=== PATIENT | male | born 1965 | race Native Hawaiian/Other Pacific Islander ===

== ENCOUNTER 2018-07-29 19:08 | Emergency (ER) | payer MEDICARE ==
--- NOTE | 2018-07-29 19:48 | EDM.PDOC ---
ED HPI GENERAL MEDICAL PROBLEM - General Chief Complaint: Flank Pain Stated Complaint: LEFT FLANK PAIN Time Seen by Provider: 07/29/18 19:08 Source of Information: Reports: Patient History Limitations: Reports: No Limitations, Language Barrier - History of Present Illness INITIAL COMMENTS - FREE TEXT/NARRATIVE: 53 y.o. male with HTN, CRI, H/O Kidney stones, came to the ED because of chronic left flank pain. 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 Pt moved 3 days ago from [place] to [place], [place] because he had family trouble back home and his daughter lives in [place], [place]. He was on a pain contract in [place], was seen at a pain clinic in [place], take Percocet daily, he did not bring his med records from [place] to [place]. 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 Pt denied trauma. He is allergic to multiple meds, requesting more pain meds, stronger then Percocet and nausea meds. No V/D no SOB, no CO or any other acute med issues. Pt took his morning HTN meds, not his PM HTN meds. 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) (percocet) Left Flank Pain Score (Numeric/FACES): 8 - Related Data Allergies Allergy/AdvReac Type Severity Reaction Status Date / Time Cephalosporins Allergy Cannot Verified 07/29/18 19:25 Remember ciprofloxacin [From Cipro] Allergy Cannot Verified 07/29/18 19:25 Remember Iodinated Contrast- Oral and Allergy Cannot Verified 07/29/18 19:25 IV Dye Remember morphine Allergy Cannot Verified 07/29/18 19:25 Remember Sulfa (Sulfonamide Allergy Cannot Verified 07/29/18 19:25 Antibiotics) Remember vancomycin Allergy Cannot Verified 07/29/18 19:25 Remember Home Meds: Home Meds Aspirin [Halfprin] 07/29/18 [History] Clopidogrel [Plavix] 07/29/18 [History] Fenofibrate Nanocrystallized [Fenofibrate] 07/29/18 [History] Metoprolol Tartrate [Lopressor] 07/29/18 [History] levoFLOXacin [Levaquin] 250 mg PO DAILY #10 tab 07/29/18 [Rx] oxyCODONE HCl/Acetaminophen [Percocet 5-325 mg Tablet] 07/29/18 [History] Social & Family History - Tobacco Use Smoking Status *Q: Never Smoker - Caffeine Use Caffeine Use: Reports: Coffee - Recreational Drug Use Recreational Drug Use: No ED ROS GENERAL - Review of Systems Review Of Systems: See Below Constitutional: Reports: No Symptoms HEENT: Reports: No Symptoms Respiratory: Reports: No Symptoms Cardiovascular: Reports: No Symptoms Endocrine: Reports: No Symptoms GI/Abdominal: Reports: No Symptoms : Reports: Flank Pain (left side) Musculoskeletal: Reports: No Symptoms Skin: Reports: No Symptoms Neurological: Reports: No Symptoms Psychiatric: Reports: No Symptoms Hematologic/Lymphatic: Reports: No Symptoms Immunologic: Reports: No Symptoms ED EXAM, RENAL/ - Physical Exam Exam: See Below Exam Limited By: Language Barrier General Appearance: Alert, WD/WN, Moderate Distress Eye Exam: Bilateral Eye: Normal Inspection Ears: Normal External Exam Nose: Normal Inspection, Normal Mucosa, No Blood Throat/Mouth: Normal Inspection, Normal Lips, Normal Voice, No Airway Compromise , Other (poor dentition) Head: Atraumatic, Normocephalic Neck: Normal Inspection Respiratory/Chest: No Respiratory Distress, Lungs Clear, Normal Breath Sounds Cardiovascular: Normal Peripheral Pulses, Regular Rate, Rhythm, No Edema, No Gallop GI/Abdominal: Normal Bowel Sounds, Soft, No Abnormal Bruit, No Mass, Pelvis Stable (Male) Exam: No Hernia Rectal (Males) Exam: Deferred Back Exam: Normal Inspection Extremities: Normal Inspection Neurological: Alert, Oriented, CN II-XII Intact, Normal Cognition, Normal Gait Psychiatric: Normal Affect Skin Exam: Warm, Dry, Intact, Normal Color, No Rash Lymphatic: No Adenopathy Course - Vital Signs Text/Narrative:: 53 y.o. male with HTN, CRI, H/O Kidney stones, came to the ED because of chronic left flank pain. 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 Pt moved 3 days ago from [place] to [place], [place] because he had family trouble back home and his daughter lives in [place], [place]. He was on a pain contract in [place], was seen at a pain clinic in [place], take Percocet daily, he did not bring his med records from [place] to [place]. 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 Pt denied trauma. He is allergic to multiple meds, requesting more pain meds, stronger then Percocet and nausea meds. No V/D no SOB, no CO or any other acute med issues. Pt took his morning HTN meds, not his PM HTN meds. BP 187/93 RR 18 Pulse ox 97% on RA Pulse 79 Temp 36.6 PE: WNWD male with left flank pain, CRI, kidney stone disease, HTN Imaging: Multiple nonobstructive calcifications left kidney, minimal, nonspecific prominence at the left renal collecting system. F/U recommended. No finding explaining the left flank pain was found. Labs: CBC nl except HGB 11.1 BMP pos for BUN 27 Cr 2.5 GFR 27 Glc 136 UA: Pos for UTI without hematuria. UCx results are pending Impression: Left flank pain, Nonobstructive left Kidney calcifications, UTI without Hematuria Tx: Zofran, Dilaudid, Levaquin (had Levaquin in the past, no SE) Reexam: Improved, please check the nursing note fopr BP on D/C. Pt said he wants to file a formal complain(?) (Could not specify) Plan: D/C with instruction. Pt stated his Daughter will pick him up form the ED because he got Dilaudid Last Recorded V/S: Last Vital Signs Temp 36.8 C 07/29/18 19:08 Pulse 88 07/29/18 21:30 Resp 18 07/29/18 21:30 BP 179/82 H 07/29/18 21:30 Pulse Ox 99 07/29/18 21:30 - Orders/Labs/Meds Orders: Active Orders 24 hr Category Date Time Status Abdomen Pelvis wo Cont [CT] Stat Exams 07/29/18 19:47 Taken CULTURE URINE [RM] Stat Lab 07/29/18 19:33 Received Saline Lock Insert [OM.PC] Routine Oth 07/29/18 20:06 Ordered Labs: Laboratory Tests 06/07/1207/29/18 07/29/18 Range/Units 19:33 19:53 19:53 WBC 9.4 (4.5-12.0) X10-3/uL RBC 3.81 L (4.30-5.75) x10(6)uL Hgb 11.1 L (13.5-17.8) g/dL Hct 32.1 (30.0-51.3) % MCV 84.3 (80-96) fL MCH 29.2 (27.7-33.6) pg MCHC 34.6 (32.2-35.4) g/dL RDW 13.7 (11.5-15.5) % Plt Count 292 (125-369) X10(3)uL MPV 7.4 (7.4-10.4) fL Neut % (Auto) 53.2 (46-82) % Lymph % (Auto) 31.1 (13-37) % [place] % (Auto) 8.5 (4-12) % Eos % (Auto) 6 H (1.0-5.0) % Baso % (Auto) 1 (0-2) % Neut # (Auto) 5.0 (1.6-8.3) # Lymph # (Auto) 2.9 (0.6-5.0) # [place] # (Auto) 0.8 (0.0-1.3) # Eos # (Auto) 0.6 (0.0-0.8) # Baso # (Auto) 0.1 (0.0-0.2) # Sodium 136 (135-145) mmol/L Potassium 4.7 (3.5-5.3) mmol/L Chloride 104 (100-110) mmol/L Carbon Dioxide 22 (21-32) mmol/L BUN 27 H (7-18) mg/dL Creatinine 2.5 H* (0.70-1.30) mg/dL Est Cr Clr Drug Dosing TNP Estimated GFR (MDRD) 27 L (>60) BUN/Creatinine Ratio 10.8 (9-20) Glucose 136 H (80-116) mg/dL Calcium 9.1 (8.6-10.2) mg/dL Urine Color Yellow (YELLOW) Urine Appearance Clear (CLEAR) Urine pH 6.0 (5.0-6.5) Ur Specific [place] 1.010 (1.010-1.025) Urine Protein 100 H (NEGATIVE) mg/dL Urine Glucose (UA) Normal (NORMAL) mg/dL Urine Ketones Negative (NEGATIVE) mg/dL Urine Occult Blood Negative (NEGATIVE) Urine Nitrite Negative (NEGATIVE) Urine Bilirubin Negative (NEGATIVE) Urine Urobilinogen Normal (NEGATIVE) mg/dL Ur Leukocyte Esterase Large H (NEGATIVE) Urine RBC 0-5 (0-5) Urine WBC 5-10 H (0-5) Ur Squamous Epith Cells Rare (NS,R,O) Urine Bacteria Many H (NS) Meds: Medications Discontinued Medications Generic Name Dose Route Start Last Admin Trade Name Freq PRN Reason Stop Dose Admin Hydromorphone HCl 0.5 mg 07/29/18 20:54 07/29/18 21:02 Dilaudid IM 07/29/18 20:55 0.5 mg ONETIME ONE Administration Sodium Chloride 1,000 mls @ 125 mls/hr 07/29/18 20:00 07/29/18 20:05 Normal Saline IV 999 mls/hr ASDIRECTED CHASTITY Administration Levofloxacin 250 mg 07/29/18 20:27 07/29/18 20:36 Levaquin PO 07/29/18 20:28 250 mg ONETIME ONE Administration Ondansetron HCl 8 mg 07/29/18 20:27 07/29/18 20:36 Zofran Odt PO 07/29/18 20:28 8 mg ONETIME ONE Administration Oxycodone/Acetaminophen 1 tab 07/29/18 20:51 07/29/18 22:08 Percocet 325-5 Mg PO 07/29/18 20:52 Not Given ONETIME ONE Sodium Chloride 10 ml 07/29/18 20:06 07/29/18 20:06 Saline Flush FLUSH 10 ml ASDIRECTED PRN Administration Keep Vein Open Departure - Departure Time of Disposition: 21:00 Disposition: Home, Self-Care 01 Condition: Good Clinical Impression: Kidney calculi, UTI (urinary tract infection) - Discharge Information Prescriptions: levoFLOXacin [Levaquin] 250 mg PO DAILY #10 tab Instructions: Kidney Stones, [id number], Urinary Tract Infection, Adult, Levofloxacin tablets Referrals: PCP,None [Primary Care Provider] - Forms: ED Department Discharge Additional Instructions: Please take Abx as recommended, please f/u with a Kidney specialist a.s.a.p cont your pain meds. Please come back if your symptoms get worse acutely. - My Orders Last 24 Hours: My Active Orders 07/29/18 19:33 CULTURE URINE [RM] Stat 07/29/18 19:47 Abdomen Pelvis wo Cont [CT] Stat 07/29/18 20:06 Saline Lock Insert [OM.PC] Routine - Assessment/Plan Last 24 Hours: My Active Orders 07/29/18 19:33 CULTURE URINE [RM] Stat 07/29/18 19:47 Abdomen Pelvis wo Cont [CT] Stat 07/29/18 20:06 Saline Lock Insert [OM.PC] Routine
[2018-07-29] MEDS: Sodium Chloride 0.9% 1,000 ML IV SCH (20:05)
[2018-07-29] MEDS: Sodium Chloride 0.9% 10 ML Syringe FLUSH PRN (20:06)
[2018-07-29] MEDS: Levofloxacin 250 MG Tab PO ONE (20:36)
[2018-07-29] MEDS: Ondansetron 8 MG Tab.DIS PO ONE (20:36)
[2018-07-29] MEDS: HYDROmorphone 2 MG/ML SDV IM ONE (21:02)
[2018-07-29] MEDS: Acetaminophen/oxyCODONE 325-5 MG Tab PO ONE (22:08)
== END 2018-07-29 21:30 | disposition home or self-care (01) ==
LOC: FB.ED 19:08
DX: N39.0 Urinary tract infection, site not specified (principal); N20.0 Calculus of kidney; Z88.1 Allergy status to other antibiotic agents; Z79.899 Other long term (current) drug therapy; Z79.82 Long term (current) use of aspirin
CPT/HCPCS: 36415; 74176; 80048; 81001; 85025; 87086; 87088; 96360; 96372; 99284; A9270; J1170; J7030; 87186

== ENCOUNTER 2018-08-11 22:45 | Emergency (ER) | payer MEDICARE ==
[2018-08-11] MEDS ORDERED: traMADol 50 MG Tab PO ONE (22:46)
--- NOTE | 2018-08-11 23:16 | EDM.PDOC ---
ED HPI GENERAL MEDICAL PROBLEM - General Chief Complaint: Flank Pain Stated Complaint: KIDNEY PAIN Time Seen by Provider: 08/11/18 23:00 Source of Information: Reports: Patient, Old Records History Limitations: Reports: No Limitations - History of Present Illness INITIAL COMMENTS - FREE TEXT/NARRATIVE: Thania returns to [facility] ED with ongoing sxs of L CVA and flank pain that is chronic, ED notes reviewed from 07/29/18. His supply of Percocet is depleted for chronic pain managment reportedly last pill taken 3 days ago. His UC noted S.epidermis, and he was given a prescription for Levaquin 250 mg qd x 10 days. He has not seen a PCP since relocating from [facility]. He reportedly has an appt. see a urologist from [place] next week. L flank Pain Score (Numeric/FACES): 7 - Related Data Allergies Allergy/AdvReac Type Severity Reaction Status Date / Time Cephalosporins Allergy Cannot Verified 07/29/18 19:25 Remember ciprofloxacin [From Cipro] Allergy Cannot Verified 07/29/18 19:25 Remember Iodinated Contrast- Oral and Allergy Cannot Verified 07/29/18 19:25 IV Dye Remember morphine Allergy Cannot Verified 07/29/18 19:25 Remember Sulfa (Sulfonamide Allergy Cannot Verified 07/29/18 19:25 Antibiotics) Remember vancomycin Allergy Cannot Verified 07/29/18 19:25 Remember Home Meds: Home Meds Aspirin [Halfprin] 81 mg DAILY 07/29/18 [History] Clopidogrel [Plavix] 75 mg DAILY 07/29/18 [History] Fenofibrate Nanocrystallized [Fenofibrate] 160 mg DAILY 07/29/18 [History] Metoprolol Tartrate [Lopressor] 50 mg DAILY 07/29/18 [History] oxyCODONE HCl/Acetaminophen [Percocet 5-325 mg Tablet] 1 tab Q4H PRN 07/29/18 [ History] Past Medical History Cardiovascular History: Reports: Stents Genitourinary History: Reports: Renal Calculus - Past Surgical History Male Surgical History: Reports: Other (See Below) Other Male Surgeries/Procedures: right kidney removed in 2007 Social & Family History - Family History Family Medical History: Noncontributory - Caffeine Use Caffeine Use: Reports: Coffee ED ROS GENERAL - Review of Systems Review Of Systems: ROS reveals no pertinent complaints other than HPI. ED EXAM, RENAL/ - Physical Exam Exam: See Below Exam Limited By: No Limitations General Appearance: Alert, WD/WN, No Apparent Distress Eye Exam: Bilateral Eye: EOMI, Normal Inspection, PERRL Ears: Normal External Exam Nose: Normal Inspection Throat/Mouth: Normal Inspection, Normal Oropharynx Head: Normocephalic Neck: Normal Inspection, Non-Tender Respiratory/Chest: Lungs Clear Cardiovascular: Regular Rate, Rhythm, No Murmur GI/Abdominal: Normal Bowel Sounds, Soft, No Organomegaly, No Distention, No Mass , Tender (overlying L CVA and flank, without guarding or rigidity) (Male) Exam: Deferred Rectal (Males) Exam: Deferred Back Exam: CVA Tenderness (L) Extremities: Normal Inspection Neurological: Alert, Oriented, CN II-XII Intact, Normal Cognition, No Motor/ Sensory Deficits Psychiatric: Normal Affect, Normal Mood Skin Exam: Warm, Dry, Intact, Normal Color, No Rash Lymphatic: No Adenopathy Course - Vital Signs Text/Narrative:: Following assessment, screening labs were performed noting CBC, BMP, and UA baseline; CRP 0.8, ESR 34 mm/hr, Urine DS pos oxycodone. Thania could not explain the positive drug screen on the basis of med free for 72 hours. He did sign a ELIJAH for clinic records from facility in [facility]. Last Recorded V/S: Last Vital Signs Temp 36.7 C 08/11/18 22:45 Pulse 89 08/11/18 22:45 Resp 18 08/11/18 22:45 BP 183/93 H 08/11/18 22:45 Pulse Ox 100 08/11/18 22:45 - Orders/Labs/Meds Labs: Laboratory Tests 08/11/18 08/11/18 08/11/18 Range/Units 23:07 23:07 23:30 WBC 10.3 (4.5-12.0) X10-3/uL RBC 4.28 L (4.30-5.75) x10(6)uL Hgb 12.6 L (13.5-17.8) g/dL Hct 36.6 (30.0-51.3) % MCV 85.5 (80-96) fL MCH 29.5 (27.7-33.6) pg MCHC 34.5 (32.2-35.4) g/dL RDW 13.8 (11.5-15.5) % Plt Count 298 (125-369) X10(3)uL MPV 7.7 (7.4-10.4) fL Neut % (Auto) 55.3 (46-82) % Lymph % (Auto) 31.7 (13-37) % [place] % (Auto) 7.7 (4-12) % Eos % (Auto) 5 (1.0-5.0) % Baso % (Auto) 1 (0-2) % Neut # (Auto) 5.6 (1.6-8.3) # Lymph # (Auto) 3.3 (0.6-5.0) # [place] # (Auto) 0.8 (0.0-1.3) # Eos # (Auto) 0.5 (0.0-0.8) # Baso # (Auto) 0.1 (0.0-0.2) # ESR 38 H (0-15) mm/hr Sodium (135-145) mmol/L Potassium (3.5-5.3) mmol/L Chloride (100-110) mmol/L Carbon Dioxide (21-32) mmol/L BUN (7-18) mg/dL Creatinine (0.70-1.30) mg/dL Est Cr Clr Drug Dosing mL/min Estimated GFR (MDRD) (>60) BUN/Creatinine Ratio (9-20) Glucose (80-116) mg/dL Calcium (8.6-10.2) mg/dL C-Reactive Protein (0.5-0.9) mg/dL Urine Color Yellow (YELLOW) Urine Appearance Clear (CLEAR) Urine pH 6.0 (5.0-6.5) Ur Specific [place] 1.020 (1.010-1.025) Urine Protein 30 H (NEGATIVE) mg/dL Urine Glucose (UA) 100 H (NORMAL) mg/dL Urine Ketones Negative (NEGATIVE) mg/dL Urine Occult Blood Negative (NEGATIVE) Urine Nitrite Negative (NEGATIVE) Urine Bilirubin Negative (NEGATIVE) Urine Urobilinogen Normal (NEGATIVE) mg/dL Ur Leukocyte Esterase Negative (NEGATIVE) Urine RBC 0-5 (0-5) Urine WBC 0-5 (0-5) Ur Squamous Epith Cells Rare (NS,R,O) Urine Bacteria Few H (NS) Urine Opiates Screen Negative (NEGATIVE) Ur Oxycodone Screen Positive (NEGATIVE) Ur Propoxyphene Screen Negative (NEGATIVE) Ur Barbituates Screen Negative (NEGATIVE) Ur Tricyclics Screen Negative (NEGATIVE) Ur Phencyclidine Scrn Negative (NEGATIVE) Ur Amphetamine Screen Negative (NEGATIVE) Urine MDMA Screen Negative (NEGATIVE) U Benzodiazepines Scrn Negative (NEGATIVE) U Cocaine Metab Screen Negative (NEGATIVE) U Marijuana (THC) Screen Negative (NEGATIVE) 08/11/18 08/11/18 Range/Units 23:30 23:30 WBC (4.5-12.0) X10-3/uL RBC (4.30-5.75) x10(6)uL Hgb (13.5-17.8) g/dL Hct (30.0-51.3) % MCV (80-96) fL MCH (27.7-33.6) pg MCHC (32.2-35.4) g/dL RDW (11.5-15.5) % Plt Count (125-369) X10(3)uL MPV (7.4-10.4) fL Neut % (Auto) (46-82) % Lymph % (Auto) (13-37) % [place] % (Auto) (4-12) % Eos % (Auto) (1.0-5.0) % Baso % (Auto) (0-2) % Neut # (Auto) (1.6-8.3) # Lymph # (Auto) (0.6-5.0) # [place] # (Auto) (0.0-1.3) # Eos # (Auto) (0.0-0.8) # Baso # (Auto) (0.0-0.2) # ESR (0-15) mm/hr Sodium 141 (135-145) mmol/L Potassium 5.6 H (3.5-5.3) mmol/L Chloride 109 D (100-110) mmol/L Carbon Dioxide 22 (21-32) mmol/L BUN 21 H (7-18) mg/dL Creatinine 2.6 H* (0.70-1.30) mg/dL Est Cr Clr Drug Dosing 29.99 mL/min Estimated GFR (MDRD) 26 L (>60) BUN/Creatinine Ratio 8.1 L (9-20) Glucose 180 H (80-116) mg/dL Calcium 8.8 (8.6-10.2) mg/dL C-Reactive Protein 0.8 (0.5-0.9) mg/dL Urine Color (YELLOW) Urine Appearance (CLEAR) Urine pH (5.0-6.5) Ur Specific [place] (1.010-1.025) Urine Protein (NEGATIVE) mg/dL Urine Glucose (UA) (NORMAL) mg/dL Urine Ketones (NEGATIVE) mg/dL Urine Occult Blood (NEGATIVE) Urine Nitrite (NEGATIVE) Urine Bilirubin (NEGATIVE) Urine Urobilinogen (NEGATIVE) mg/dL Ur Leukocyte Esterase (NEGATIVE) Urine RBC (0-5) Urine WBC (0-5) Ur Squamous Epith Cells (NS,R,O) Urine Bacteria (NS) Urine Opiates Screen (NEGATIVE) Ur Oxycodone Screen (NEGATIVE) Ur Propoxyphene Screen (NEGATIVE) Ur Barbituates Screen (NEGATIVE) Ur Tricyclics Screen (NEGATIVE) Ur Phencyclidine Scrn (NEGATIVE) Ur Amphetamine Screen (NEGATIVE) Urine MDMA Screen (NEGATIVE) U Benzodiazepines Scrn (NEGATIVE) U Cocaine Metab Screen (NEGATIVE) U Marijuana (THC) Screen (NEGATIVE) Departure - Departure Time of Disposition: 00:22 Disposition: Home, Self-Care 01 Condition: Fair Clinical Impression: Chronic left flank pain - Discharge Information *PRESCRIPTION DRUG MONITORING PROGRAM REVIEWED*: Not Applicable *COPY OF PRESCRIPTION DRUG MONITORING REPORT IN PATIENT SCOTT: Not Applicable Referrals: PCP,None [Primary Care Provider] - Forms: ED Department Discharge - Problem List & Annotations (1) Chronic left flank pain SNOMED Code(s): 876166179 Code(s): R10.9 - UNSPECIFIED ABDOMINAL PAIN; G89.29 - OTHER CHRONIC PAIN Status: Acute Current Visit: Yes Annotation/Comment:: I dispensed Tramadol 50 mg q6 hrs prn for pain, and follow up with PCP. - Problem List Review Problem List Initiated/Reviewed/Updated: Yes - Assessment/Plan Plan: Follow up with PCP.
== END 2018-08-12 00:27 | disposition home or self-care (01) ==
LOC: FB.ED 22:45
DX: R10.9 Unspecified abdominal pain (principal); Z88.2 Allergy status to sulfonamides; Z88.6 Allergy status to analgesic agent; Z88.8 Allergy status to other drugs, medicaments and biological substances; Z79.02 Long term (current) use of antithrombotics/antiplatelets; Z79.899 Other long term (current) drug therapy; Z88.1 Allergy status to other antibiotic agents
CPT/HCPCS: 36415; 80048; 80305-QW; 81001; 85025; 85651; 86140; 99284; A9270-GY

== ENCOUNTER 2018-08-16 03:47 | Emergency (ER) | payer MEDICARE, MEDICAID ==
[2018-08-16] MEDS ORDERED: Nitrofurantoin Monohydrate/Macrocrystalline 100 MG Cap PO ONE (03:48)
[2018-08-16] MEDS ORDERED: fentaNYL 100 MCG/2 ML SDV IVPUSH ONE (04:36)
[2018-08-16] MEDS ORDERED: Ondansetron 4 MG/2 ML SDV IVPUSH ONE (04:36)
--- NOTE | 2018-08-16 04:41 | EDM.PDOC ---
ED HPI GENERAL MEDICAL PROBLEM - General Chief Complaint: General Stated Complaint: WEAK FOR 4 DAYS Time Seen by Provider: 08/16/18 04:36 Source of Information: Reports: Patient History Limitations: Reports: No Limitations - History of Present Illness INITIAL COMMENTS - FREE TEXT/NARRATIVE: Thania complains of left flank pain,x several days. It is attended by diarrhea, frequency and urgency of urination. He has a h/o CKD,GLORIA and one kidney. He has a h/o Kidney stones,and frequent UTIs,for which he has an upcoming appt with Urology on 08/18.He recently moved from [facility],where he was on a pain contract for the same .He denies fever or chills. - Related Data Allergies Allergy/AdvReac Type Severity Reaction Status Date / Time Cephalosporins Allergy Cannot Verified 08/16/18 04:22 Remember ciprofloxacin [From Cipro] Allergy Cannot Verified 08/16/18 04:22 Remember Iodinated Contrast- Oral and Allergy Cannot Verified 08/16/18 04:22 IV Dye Remember morphine Allergy Cannot Verified 08/16/18 04:22 Remember Sulfa (Sulfonamide Allergy Cannot Verified 08/16/18 04:22 Antibiotics) Remember vancomycin Allergy Cannot Verified 08/16/18 04:22 Remember Home Meds: Home Meds Aspirin [Halfprin] 81 mg DAILY 07/29/18 [History] Clopidogrel [Plavix] 75 mg DAILY 07/29/18 [History] Fenofibrate Nanocrystallized [Fenofibrate] 160 mg DAILY 07/29/18 [History] Metoprolol Tartrate [Lopressor] 50 mg DAILY 07/29/18 [History] oxyCODONE HCl/Acetaminophen [Percocet 5-325 mg Tablet] 1 tab Q4H PRN 07/29/18 [ History] Past Medical History Cardiovascular History: Reports: Stents Other Cardiovascular History: has 6 stents Genitourinary History: Reports: Renal Calculus Other Genitourinary History: has nonfunctioning R kidney Psychiatric History: Reports: Anxiety, Depression, Panic Attack Endocrine/Metabolic History: Reports: Diabetes, Type II Other Endocrine/Metabolic History: states DM resolved after weightloss, is currently not on meds. Hematologic History: Reports: Blood Transfusion(s) - Infectious Disease History Infectious Disease History: Reports: Chicken Pox, Measles, Mumps, Shingles - Past Surgical History Male Surgical History: Reports: Other (See Below) Other Male Surgeries/Procedures: right kidney removed in 2007 Social & Family History - Family History Family Medical History: Noncontributory - Tobacco Use Smoking Status *Q: Current Every Day Smoker Years of Tobacco use: 40 Packs/Tins Daily: 1 - Caffeine Use Caffeine Use: Reports: Coffee ED ROS GENERAL - Review of Systems Review Of Systems: ROS reveals no pertinent complaints other than HPI. ED EXAM, GENERAL - Physical Exam Exam: See Below Exam Limited By: No Limitations General Appearance: Alert, Anxious Ears: Normal External Exam, Normal Canal, Hearing Grossly Normal, Normal TMs Respiratory/Chest: No Respiratory Distress Cardiovascular: Normal Peripheral Pulses Course - Vital Signs Last Recorded V/S: Last Vital Signs Temp 98.2 F 08/16/18 03:50 Pulse 84 08/16/18 03:50 Resp 16 08/16/18 03:50 BP 151/88 H 08/16/18 03:50 Pulse Ox 98 08/16/18 03:50 - Orders/Labs/Meds Orders: Active Orders 24 hr Category Date Time Status Abdomen Pelvis wo Cont [CT] Stat Exams 08/16/18 04:29 Taken CULTURE URINE [RM] Stat Lab 08/16/18 04:00 Received Sodium Chloride 0.9% [Normal Saline] 1,000 ml Med 08/16/18 04:45 Active IV ASDIRECTED Sodium Chloride 0.9% [Normal Saline] 1,000 ml Med 08/16/18 06:00 Active IV ASDIRECTED Medication Orders Sodium Chloride (Normal Saline) 1,000 mls @ 999 mls/hr IV ASDIRECTED CHASTITY Last Admin: 08/16/18 05:05 Dose: 999 mls/hr Sodium Chloride (Normal Saline) 1,000 mls @ 125 mls/hr IV ASDIRECTED CHASTITY Last Admin: 08/16/18 06:10 Dose: 125 mls/hr Labs: Laboratory Tests 08/16/18 08/16/18 08/16/18 Range/Units 04:00 04:48 04:48 WBC 10.2 (4.5-12.0) X10-3/uL RBC 4.15 L (4.30-5.75) x10(6)uL Hgb 11.9 L (13.5-17.8) g/dL Hct 35.4 (30.0-51.3) % MCV 85.3 (80-96) fL MCH 28.6 (27.7-33.6) pg MCHC 33.5 (32.2-35.4) g/dL RDW 13.9 (11.5-15.5) % Plt Count 269 (125-369) X10(3)uL MPV 7.7 (7.4-10.4) fL Neut % (Auto) 53.1 (46-82) % Lymph % (Auto) 32.8 (13-37) % [place] % (Auto) 8.4 (4-12) % Eos % (Auto) 5 (1.0-5.0) % Baso % (Auto) 1 (0-2) % Neut # (Auto) 5.4 (1.6-8.3) # Lymph # (Auto) 3.3 (0.6-5.0) # [place] # (Auto) 0.9 (0.0-1.3) # Eos # (Auto) 0.5 (0.0-0.8) # Baso # (Auto) 0.1 (0.0-0.2) # Sodium 141 (135-145) mmol/L Potassium 5.7 H (3.5-5.3) mmol/L Chloride 108 (100-110) mmol/L Carbon Dioxide 22 (21-32) mmol/L BUN 41 H D (7-18) mg/dL Creatinine 3.1 H* (0.70-1.30) mg/dL Est Cr Clr Drug Dosing 25.15 mL/min Estimated GFR (MDRD) 21 L (>60) BUN/Creatinine Ratio 13.2 (9-20) Glucose 158 H (80-116) mg/dL Calcium 9.3 (8.6-10.2) mg/dL Urine Color Yellow (YELLOW) Urine Appearance Slightly cloudy (CLEAR) Urine pH 6.0 (5.0-6.5) Ur Specific [place] 1.015 (1.010-1.025) Urine Protein 30 H (NEGATIVE) mg/dL Urine Glucose (UA) Normal (NORMAL) mg/dL Urine Ketones Negative (NEGATIVE) mg/dL Urine Occult Blood Negative (NEGATIVE) Urine Nitrite Negative (NEGATIVE) Urine Bilirubin Negative (NEGATIVE) Urine Urobilinogen Normal (NEGATIVE) mg/dL Ur Leukocyte Esterase Large H (NEGATIVE) Urine RBC 0-5 (0-5) Urine WBC 10-20 H (0-5) Ur Squamous Epith Cells Rare (NS,R,O) Urine Bacteria Moderate H (NS) Meds: Medications Generic Name Dose Route Start Last Admin Trade Name Freq PRN Reason Stop Dose Admin Sodium Chloride 1,000 mls @ 999 mls/hr 08/16/18 04:45 08/16/18 05:05 Normal Saline IV 999 mls/hr ASDIRECTED CHASTITY Administration Sodium Chloride 1,000 mls @ 125 mls/hr 08/16/18 06:00 08/16/18 06:10 Normal Saline IV 125 mls/hr ASDIRECTED CHASTITY Administration Discontinued Medications Generic Name Dose Route Start Last Admin Trade Name Freq PRN Reason Stop Dose Admin Fentanyl 100 mcg 08/16/18 04:36 08/16/18 05:12 Sublimaze IVPUSH 08/16/18 04:37 100 mcg ONETIME ONE Administration Ondansetron HCl 8 mg 08/16/18 04:36 08/16/18 05:05 Zofran IVPUSH 08/16/18 04:37 8 mg ONETIME ONE Administration Departure - Departure Time of Disposition: 06:48 Disposition: Home, Self-Care 01 Condition: Good Clinical Impression: UTI, Urinary tract infectious disease - Discharge Information Referrals: PCP,None [Primary Care Provider] - Forms: ED Department Discharge - Problem List & Annotations (1) Kidney calculi SNOMED Code(s): 73798304 Code(s): N20.0 - CALCULUS OF KIDNEY Status: Acute Current Visit: No (2) UTI (urinary tract infection) SNOMED Code(s): 30970794 Code(s): N39.0 - URINARY TRACT INFECTION, SITE NOT SPECIFIED Status: Acute Current Visit: No Qualifiers: Urinary tract infection type: acute cystitis (3) Chronic left flank pain SNOMED Code(s): 042409872 Code(s): R10.9 - UNSPECIFIED ABDOMINAL PAIN; G89.29 - OTHER CHRONIC PAIN Status: Acute Current Visit: No (4) CKD (chronic kidney disease) SNOMED Code(s): 633143299 Code(s): N18.9 - CHRONIC KIDNEY DISEASE, UNSPECIFIED Status: Acute Current Visit: Yes Qualifiers: Chronic kidney disease stage: stage 3 (moderate) Qualified Code(s): N18.3 - Chronic kidney disease, stage 3 (moderate) (5) GLORIA (generalized anxiety disorder) SNOMED Code(s): 81582013 Code(s): F41.1 - GENERALIZED ANXIETY DISORDER Status: Acute Current Visit : Yes - Problem List Review Problem List Initiated/Reviewed/Updated: Yes - My Orders Last 24 Hours: My Active Orders 08/16/18 04:00 CULTURE URINE [RM] Stat 08/16/18 04:29 Abdomen Pelvis wo Cont [CT] Stat 08/16/18 04:45 Sodium Chloride 0.9% [Normal Saline] 1,000 ml IV ASDIRECTED 08/16/18 06:00 Sodium Chloride 0.9% [Normal Saline] 1,000 ml IV ASDIRECTED - Assessment/Plan Last 24 Hours: My Active Orders 08/16/18 04:00 CULTURE URINE [RM] Stat 08/16/18 04:29 Abdomen Pelvis wo Cont [CT] Stat 08/16/18 04:45 Sodium Chloride 0.9% [Normal Saline] 1,000 ml IV ASDIRECTED 08/16/18 06:00 Sodium Chloride 0.9% [Normal Saline] 1,000 ml IV ASDIRECTED Plan: 1 L Normal saline,Fentanyl and Zofran.CT kidney stone protocol showed mild hydronephrosis. No stone within the bladder or ureter. I will DC home on Macrobid. Urine culture on 07/29/2018 showed s epidermidis to it.
[2018-08-16] MEDS ORDERED: Sodium Chloride 0.9% 1,000 ML IV SCH ×2 (04:45→06:00)
== END 2018-08-16 07:20 | disposition home or self-care (01) ==
LOC: FB.ED 03:47
DX: N39.0 Urinary tract infection, site not specified (principal); F41.9 Anxiety disorder, unspecified; F32.9 Major depressive disorder, single episode, unspecified; E11.9 Type 2 diabetes mellitus without complications; F17.210 Nicotine dependence, cigarettes, uncomplicated; Z88.8 Allergy status to other drugs, medicaments and biological substances; Z88.1 Allergy status to other antibiotic agents; Z88.2 Allergy status to sulfonamides; Z79.82 Long term (current) use of aspirin
CPT/HCPCS: 36415; 74176; 80048; 81001; 85025; 87086; 87088; 87186; 96361; 96374; 96375; 99284; A9270; J2405; J3010; J7030

== ENCOUNTER 2018-08-17 01:11 | Emergency (ER) | payer MEDICARE, MEDICAID ==
[2018-08-17] MEDS ORDERED: Sodium Chloride 0.9% 10 ML Syringe FLUSH PRN (01:42)
[2018-08-17] MEDS ORDERED: Acetaminophen 1,000 MG in Premix Bag 1 BAG IV ONE (01:43)
[2018-08-17] MEDS ORDERED: Sodium Chloride 0.9% 1,000 ML IV ONE (01:43)
--- NOTE | 2018-08-17 01:58 | EDM.PDOC ---
ED HPI GENERAL MEDICAL PROBLEM - General Stated Complaint: DIARRHEA,LT BACK PAIN Time Seen by Provider: 08/17/18 01:35 Source of Information: Reports: Patient History Limitations: Reports: No Limitations - History of Present Illness INITIAL COMMENTS - FREE TEXT/NARRATIVE: 53-year-old male with long-standing history of left flank pain, kidney stones and chronic renal insufficiency. He was just in the emergency department on 08/[address] Stack. He had blood tests, urine tests and a CT scan of his abdomen and pelvis. The blood tests did show creatinine 3.1 (and a review of the patient's records does show that his creatinine has increased mildly over the 3 visits that he has had in the emergency department over the first part of July.. The urine test suggested ongoing infection with some white cells and some bacteria. The CT scan of his abdomen and pelvis showed no evidence of kidney stones. He did have mild hydronephrosis on the left side. The patient was not given any pain medications. He had seen Dr. Stack in clinic wanting to establish for chronic pain management with a pain contract for opiates and Dr. Stack refused to prescribe the patient chronic pain medications. The patient was not prescribed pain medication when discharged on the morning of 08/16/2018. The patient was also placed on Macrobid by Dr. Stack and had previously been on levofloxacin for a tract infection. He tells me that the pain seems to have worsened. He reports the pain as an 8/10. It is in his left flank. It is a sharp and aching pain. It is no different from his previous pains, just seems to be worse. He also reports that he has had diarrhea 6-8 today and that seems to be worse than when he presented on 2018. He has not really eaten very well. He has been taking liquids well. No fevers. No vomiting. No chest pain. No shortness of breath. There are no other associated signs or symptoms. There are no other modifying factors. 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: Reports: Other (see below) (Nothing) - Related Data Allergies Allergy/AdvReac Type Severity Reaction Status Date / Time Cephalosporins Allergy Cannot Verified 08/17/18 02:24 Remember ciprofloxacin [From Cipro] Allergy Cannot Verified 08/17/18 02:24 Remember Iodinated Contrast- Oral and Allergy Cannot Verified 08/17/18 02:24 IV Dye Remember morphine Allergy Cannot Verified 08/17/18 02:24 Remember Sulfa (Sulfonamide Allergy Cannot Verified 08/17/18 02:24 Antibiotics) Remember vancomycin Allergy Cannot Verified 08/17/18 02:24 Remember Home Meds: Home Meds Aspirin [Halfprin] 81 mg DAILY 07/29/18 [History] Clopidogrel [Plavix] 75 mg DAILY 07/29/18 [History] Fenofibrate Nanocrystallized [Fenofibrate] 160 mg DAILY 07/29/18 [History] Metoprolol Tartrate [Lopressor] 50 mg DAILY 07/29/18 [History] oxyCODONE HCl/Acetaminophen [Percocet 5-325 mg Tablet] 1 tab Q4H PRN 07/29/18 [ History] Past Medical History Cardiovascular History: Reports: CAD, High Cholesterol, Hypertension, HI (4), Stents (Time 6) Genitourinary History: Reports: Chronic Renal Insuffiency, Renal Calculus Other Genitourinary History: Status post right nephrectomy Psychiatric History: Reports: Anxiety, Depression, Panic Attack Endocrine/Metabolic History: Reports: Diabetes, Type II (But reportedly on no medications for this) Other Endocrine/Metabolic History: states DM resolved after weightloss, is currently not on meds. Hematologic History: Reports: Blood Transfusion(s) - Infectious Disease History Infectious Disease History: Reports: Chicken Pox, Measles, Mumps, Shingles - Past Surgical History Cardiovascular Surgical History: Reports: Carotid Stents (6) Female Surgical History: Reports: Kidney stone extraction, Lithotripsy/ESWL, Nephrectomy Male Surgical History: Reports: Other (See Below) Other Male Surgeries/Procedures: right kidney removed in 2007 Social & Family History - Tobacco Use Smoking Status *Q: Current Every Day Smoker - Caffeine Use Caffeine Use: Reports: Coffee - Alcohol Use Alcohol Use History: No - Living Situation & Occupation Social History Comment: Drove himself to the [facility]. ED ROS GENERAL - Review of Systems Review Of Systems: See Below Constitutional: Reports: No Symptoms HEENT: Reports: No Symptoms Respiratory: Reports: Cough Cardiovascular: Reports: No Symptoms GI/Abdominal: Reports: Diarrhea, Other (Left flank pain) : Reports: Flank Pain (Left). Denies: Dysuria, Hematuria Musculoskeletal: Reports: No Symptoms Skin: Reports: No Symptoms Neurological: Reports: No Symptoms Hematologic/Lymphatic: Reports: No Symptoms Immunologic: Reports: No Symptoms ED EXAM, RENAL/ - Physical Exam Exam: See Below Exam Limited By: No Limitations General Appearance: Alert, WD/WN, No Apparent Distress Eye Exam: Bilateral Eye: EOMI, Normal Inspection, PERRL Ears: Normal External Exam Nose: Normal Inspection, Normal Mucosa, No Blood Throat/Mouth: Normal Inspection, Normal Oropharynx (Except for mildly dry mucous membranes), Normal Voice, No Airway Compromise Head: Atraumatic, Normocephalic Neck: Normal Inspection, Supple, Non-Tender, Full Range of Motion Respiratory/Chest: No Respiratory Distress, Lungs Clear, Normal Breath Sounds, No Accessory Muscle Use, Chest Non-Tender Cardiovascular: Normal Peripheral Pulses, Regular Rate, Rhythm GI/Abdominal: Normal Bowel Sounds, Soft, No Mass Back Exam: Normal Inspection Extremities: Normal Inspection, Normal Range of Motion, Non-Tender, No Pedal Edema, Normal Capillary Refill Neurological: Alert, Oriented, CN II-XII Intact, Normal Cognition, No Motor/ Sensory Deficits Skin Exam: Warm, Dry, Intact Lymphatic: No Adenopathy EKG INTERPRETATION EKG Date: 08/17/18 Time: 02:30 Rhythm: NSR Rate (Beats/Min): 81 [place]: Normal P-Wave: Present QRS: Normal ST-T: Other (Somewhat peaked/prominent T waves) QT: Normal EKG Interpretation Comments: Normal sinus rhythm with a rate of 81. There are prominent/peaked T waves. There is some evidence of early repolarization. There is a normal axis. There is a normal QTc. Course - Orders/Labs/Meds Orders: Active Orders 24 hr Category Date Time Status EKG Documentation Completion [RC] ASDIRECTED Care 08/17/18 02:28 Active RT Aerosol Therapy [RC] ASDIRECTED Care 08/17/18 02:39 Active Sodium Chloride 0.9% [Saline Flush] Med 08/17/18 01:42 Active 10 ml FLUSH ASDIRECTED PRN Peripheral IV Insertion Adult [OM.PC] Routine Oth 08/17/18 01:42 Ordered EKG 12 Lead [EK] Routine Ther 08/17/18 02:28 Ordered Medication Orders Sodium Chloride (Saline Flush) 10 ml FLUSH ASDIRECTED PRN PRN Reason: Keep Vein Open Labs: Laboratory Tests 08/17/18 08/17/18 Range/Units 02:00 02:00 WBC 9.6 (4.5-12.0) X10-3/uL RBC 3.90 L (4.30-5.75) x10(6)uL Hgb 11.1 L (13.5-17.8) g/dL Hct 33.1 (30.0-51.3) % MCV 85.0 (80-96) fL MCH 28.5 (27.7-33.6) pg MCHC 33.6 (32.2-35.4) g/dL RDW 14.1 (11.5-15.5) % Plt Count 238 (125-369) X10(3)uL MPV 7.3 L (7.4-10.4) fL Neut % (Auto) 52.3 (46-82) % Lymph % (Auto) 33.2 (13-37) % [place] % (Auto) 9.5 (4-12) % Eos % (Auto) 5 (1.0-5.0) % Baso % (Auto) 1 (0-2) % Neut # (Auto) 5.1 (1.6-8.3) # Lymph # (Auto) 3.2 (0.6-5.0) # [place] # (Auto) 0.9 (0.0-1.3) # Eos # (Auto) 0.4 (0.0-0.8) # Baso # (Auto) 0.0 (0.0-0.2) # Sodium 140 (135-145) mmol/L Potassium 6.5 H* (3.5-5.3) mmol/L Chloride 111 H (100-110) mmol/L Carbon Dioxide 20 L (21-32) mmol/L BUN 39 H (7-18) mg/dL Creatinine 3.0 H* (0.70-1.30) mg/dL Est Cr Clr Drug Dosing TNP Estimated GFR (MDRD) 22 L (>60) BUN/Creatinine Ratio 13.0 (9-20) Glucose 106 (80-116) mg/dL Calcium 8.9 (8.6-10.2) mg/dL Meds: Medications Generic Name Dose Route Start Last Admin Trade Name Freq PRN Reason Stop Dose Admin Sodium Chloride 10 ml 08/17/18 01:42 Saline Flush FLUSH ASDIRECTED PRN Keep Vein Open Discontinued Medications Generic Name Dose Route Start Last Admin Trade Name Freq PRN Reason Stop Dose Admin Albuterol 5 mg 08/17/18 02:36 08/17/18 03:00 Proventil Neb Soln NEB 08/17/18 02:37 5 mg ONETIME ONE Administration Calcium Gluconate 1 gm 08/17/18 02:39 Calcium Gluconate IV 08/17/18 02:40 ONETIME ONE Dextrose/Water 50 ml 08/17/18 02:36 Dextrose 50% In Water IVPUSH 08/17/18 02:37 ONETIME ONE Fentanyl 100 mcg 08/17/18 02:52 Sublimaze IVPUSH 08/17/18 02:53 ONETIME ONE Acetaminophen 1,000 mg/ Premix 100 mls @ 400 mls/hr 08/17/18 01:43 08/17/18 02:25 IV 08/17/18 01:57 Not Given NOW ONE Sodium Chloride 1,000 mls @ 999 mls/hr 08/17/18 01:43 08/17/18 01:55 Normal Saline IV 08/17/18 02:43 999 mls/hr .BOLUS ONE Administration Acetaminophen 100 mls @ 400 mls/hr 08/17/18 02:30 Ofirmev IV 08/17/18 02:44 ONETIME ONE Insulin Human Regular 8 unit 08/17/18 02:47 Humulin R IV 08/17/18 02:48 ONETIME ONE Sodium Bicarbonate 50 meq 08/17/18 02:36 Sodium Bicarbonate 8.4% IVPUSH 08/17/18 02:37 ONETIME ONE - Re-Assessments/Exams Free Text/Narrative Re-Assessment/Exam: 08/17/18 02:35: Patient's creatinine is 3.0. His Potassium, however, is 6.5. EKG shows prominent/peaked T waves. We will move the patient to a monitored bed and placed patient on cardiac surgeon with treatment for hyperkalemia. He will be given calcium gluconate 1 g IV, sodium bicarbonate 1 amp IV, albuterol neb 5 mg and D50 one amp IV with regular insulin 8 units IV. 08/17/18 02:55: Patient remains vitally stable. He is awake and alert. Immediate therapy for hyperkalemia is being implemented. With the patient's hyperkalemia, worsening renal function with one kidney, hydronephrosis on CT scan of 08/16/2018 and ongoing left flank pain, the patient will need to be admitted for treatment of these conditions and further evaluation. He will need specialty services which are not available at [facility] and will need transfer to a facility which has urology specialty services and nephrology specially services. The patient was scheduled to see urology through [facility] in [place] and the patient asked that I discuss his case with them. 08/17/18 03:12: I discussed patient's case with Dr. Emanuel, hospitalist at [facility] in [place], and he has agreed to accept the patient in transfer. He agrees with the current treatment regimen for the patient's hyperkalemia and recommends continued IV fluid hydration with normal saline and continued careful monitoring. The patient will be transferred to [facility] in [place] via ambulance for direct admission. The patient is in agreement with the plans for transfer. Departure - Departure Time of Disposition: 03:20 Disposition: DC/Tfer to Acute Hospital 02 Condition: Fair (Guarded) Clinical Impression: Hyperkalemia, Acute electrocardiogram changes, Left flank pain, Hydronephrosis , left [id number] kidney injury Qualifiers: Acute renal failure type: unspecified Chronic kidney disease stage: unspecified stage Qualified Code(s): N17.9 - Acute kidney failure, unspecified; N18.9 - Chronic kidney disease, unspecified - Discharge Information Referrals: PCP,None [Primary Care Provider] - - My Orders Last 24 Hours: My Active Orders 08/17/18 01:42 Sodium Chloride 0.9% [Saline Flush] 10 ml FLUSH ASDIRECTED PRN Peripheral IV Insertion Adult [OM.PC] Routine 08/17/18 02:28 EKG Documentation Completion [RC] ASDIRECTED EKG 12 Lead [EK] Routine 08/17/18 02:39 RT Aerosol Therapy [RC] ASDIRECTED - Assessment/Plan Last 24 Hours: My Active Orders 08/17/18 01:42 Sodium Chloride 0.9% [Saline Flush] 10 ml FLUSH ASDIRECTED PRN Peripheral IV Insertion Adult [OM.PC] Routine 08/17/18 02:28 EKG Documentation Completion [RC] ASDIRECTED EKG 12 Lead [EK] Routine 08/17/18 02:39 RT Aerosol Therapy [RC] ASDIRECTED
[2018-08-17] MEDS ORDERED: 50% Dextrose in Water 50 ML Syringe IVPUSH ONE (02:36)
[2018-08-17] MEDS ORDERED: Albuterol 0.083% 2.5 MG/3 ML Neb Soln NEB ONE (02:36)
[2018-08-17] MEDS ORDERED: Sodium Bicarbonate 8.4% 50 MEQ/50 ML Syringe IVPUSH ONE (02:36)
[2018-08-17] MEDS ORDERED: Calcium Gluconate 10% 1 GM/10 ML SDV IV ONE (02:39)
[2018-08-17] MEDS ORDERED: Insulin Lispro 100 Unit/ML 3 ML KwikPen SUBCUT ONE (02:40)
[2018-08-17] MEDS ORDERED: Insulin Regular, Human 100 Units/ML 3 ML Vial IV ONE (02:47)
[2018-08-17] MEDS ORDERED: fentaNYL 100 MCG/2 ML SDV IVPUSH ONE (02:52)
[2018-08-17] MEDS ORDERED: Sodium Chloride 0.9% 1,000 ML IV SCH (03:30)
== END 2018-08-17 04:00 ==
LOC: FB.ED 01:11
DX: N17.9 Acute kidney failure, unspecified (principal); I12.9 Hypertensive chronic kidney disease with stage 1 through stage 4 chronic kidney disease, or unspecified chronic kidney disease; E11.22 Type 2 diabetes mellitus with diabetic chronic kidney disease; N18.9 Chronic kidney disease, unspecified; N13.2 Hydronephrosis with renal and ureteral calculous obstruction; R94.31 Abnormal electrocardiogram [ECG] [EKG]; E87.5 Hyperkalemia; F41.9 Anxiety disorder, unspecified; F32.9 Major depressive disorder, single episode, unspecified; F17.200 Nicotine dependence, unspecified, uncomplicated; Z79.82 Long term (current) use of aspirin; Z79.899 Other long term (current) drug therapy; Z88.1 Allergy status to other antibiotic agents; Z91.041 Radiographic dye allergy status; Z88.2 Allergy status to sulfonamides
CPT/HCPCS: 36415; 80048; 85025; 93005; 94640; 96361; 96365; 96375; 99285; A4216; J0131; J0610; J1815; J3010; J7030

== ENCOUNTER 2018-08-24 23:16 | Emergency (ER) | payer MEDICARE, MEDICAID ==
--- NOTE | 2018-08-25 01:00 | EDM.PDOC ---
ED HPI GENERAL MEDICAL PROBLEM - General Chief Complaint: Flank Pain Stated Complaint: LT FLANK PAIN Time Seen by Provider: 08/25/18 00:40 Source of Information: Reports: Patient History Limitations: Reports: No Limitations - History of Present Illness INITIAL COMMENTS - FREE TEXT/NARRATIVE: 53-year-old male with complaints of left flank pain and reporting that he is out of his Percocet. He has chronic left flank pain with history of solitary left kidney and history of multiple ureteral stones with chronic renal insufficiency. The patient has been seen multiple times in this emergency Department related to his left flank pain. I saw him on 08/17/2018 and at that time he had hyperkalemia, urinary tract infection and acute kidney injury with acute on chronic renal failure and he was sent to [facility] in [place]. He apparently was treated for his hyperkalemia and was also placed on antibiotics for his urinary tract infection and urology was consult to see the patient. The patient, however, refused any further treatment or evaluation and was discharged at his request on 08/17/2018. He was prescribed additional antibiotics but he has never gotten those antibiotics filled. He was seen in follow-up by the urologist Dr. Gilbert who felt that had no evidence of obstruction and did not need any urologic intervention. The patient reports that he was given a prescription for 24 Percocet 5/325 on his discharge on 2018 and he is currently out of those medications and he is reporting an 8/10 level of pain in his left back and flank area. The pain is a sharp and throbbing pain. This pain is no different than the pain that he always has but it just seems to be worse because he does not have any medications to take for pain. He was referred to the pain clinic through [facility] in [place] and is supposed to have an appointment with them on 09/03/2018. He apparently had discussed trying to get Dr. Gilbert to cover him with urtication's but Dr. Gilbert refused. The patient denies any fever. He has been eating and drinking normally. He has had no weakness or dizziness. He reports that he feels well other than he has left back and flank pain that is not controlled. There are no other associated signs or symptoms. There are no other modifying factors. It should be noted that I reviewed the patient's records from [facility] from his admission on 08/17/2018 and from his follow-up appointment with Dr. Gilbert on 08/20/2018. Onset: Other (Months or years) Duration: Chronic, Constant Location: Reports: Back (Left back and left flank) Quality: Reports: Ache, Throbbing Severity: Moderate (to severe) Improves with: Reports: None Worsens with: Reports: Other (Palpation) Context: Reports: Other (Ongoing. 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 (see below) (Ran out of his Percocet; nothing) - Related Data Allergies Allergy/AdvReac Type Severity Reaction Status Date / Time Cephalosporins Allergy Cannot Verified 08/17/18 02:24 Remember ciprofloxacin [From Cipro] Allergy Cannot Verified 08/17/18 02:24 Remember Iodinated Contrast- Oral and Allergy Cannot Verified 08/17/18 02:24 IV Dye Remember morphine Allergy Cannot Verified 08/17/18 02:24 Remember Sulfa (Sulfonamide Allergy Cannot Verified 08/17/18 02:24 Antibiotics) Remember vancomycin Allergy Cannot Verified 08/17/18 02:24 Remember Home Meds: Home Meds Aspirin [Halfprin] 81 mg DAILY 07/29/18 [History] Clopidogrel [Plavix] 75 mg DAILY 07/29/18 [History] Fenofibrate Nanocrystallized [Fenofibrate] 160 mg DAILY 07/29/18 [History] Metoprolol Tartrate [Lopressor] 50 mg DAILY 07/29/18 [History] oxyCODONE HCl/Acetaminophen [Percocet 5-325 mg Tablet] 1 tab Q4H PRN 07/29/18 [ History] Rifampin [Rifadin] 300 mg PO TID #30 capsule 08/19/18 [Rx] Doxycycline [Vibramycin] 100 mg PO BID 10 Days #20 cap 08/25/18 [Rx] Past Medical History Cardiovascular History: Reports: CAD, High Cholesterol, Hypertension, TN (4), Stents (Time 6) Other Cardiovascular History: has 6 stents Genitourinary History: Reports: Chronic Renal Insuffiency, Renal Calculus, Other (See Below) (Chronic right flank pain) Other Genitourinary History: Status post right nephrectomy Psychiatric History: Reports: Anxiety, Depression, Panic Attack Endocrine/Metabolic History: Reports: Diabetes, Type II (But reportedly on no medications for this) Other Endocrine/Metabolic History: states DM resolved after weightloss, is currently not on meds. Hematologic History: Reports: Blood Transfusion(s) - Infectious Disease History Infectious Disease History: Reports: Chicken Pox, Measles, Mumps, Shingles - Past Surgical History Cardiovascular Surgical History: Reports: Carotid Stents (6) Female Surgical History: Reports: Kidney stone extraction, Lithotripsy/ESWL, Nephrectomy Male Surgical History: Reports: Other (See Below) Other Male Surgeries/Procedures: right kidney removed in 2007 Social & Family History - Tobacco Use Smoking Status *Q: Current Every Day Smoker - Caffeine Use Caffeine Use: Reports: Coffee - Alcohol Use Alcohol Use History: Yes Alcohol Use Frequency: Rarely - Living Situation & Occupation Social History Comment: Recently moved here from [place]. ED ROS GENERAL - Review of Systems Review Of Systems: See Below Constitutional: Denies: Fever, Chills HEENT: Reports: No Symptoms Respiratory: Reports: No Symptoms Cardiovascular: Reports: Chest Pain (Right-sided chest pain off-and-on) GI/Abdominal: Reports: No Symptoms : Reports: Flank Pain (Left flank pain which is chronic.) Musculoskeletal: Reports: Back Pain Skin: Reports: No Symptoms Neurological: Reports: No Symptoms Hematologic/Lymphatic: Reports: No Symptoms Immunologic: Reports: No Symptoms ED EXAM, GENERAL - Physical Exam Exam: See Below Exam Limited By: No Limitations General Appearance: Alert, WD/WN, Mild Distress, Other (Nontoxic.) Eye Exam: Bilateral Eye: EOMI, Normal Inspection, PERRL Ears: Normal External Exam Ear Exam: Bilateral Ear: Auricle Normal Nose: Normal Inspection, Normal Mucosa, No Blood Throat/Mouth: Normal Inspection, Normal Oropharynx, Normal Voice, No Airway Compromise Head: Atraumatic, Normocephalic Neck: Normal Inspection, Supple, Non-Tender, Full Range of Motion Respiratory/Chest: No Respiratory Distress, Lungs Clear, Normal Breath Sounds, No Accessory Muscle Use, Chest Non-Tender Cardiovascular: Normal Peripheral Pulses, Regular Rate, Rhythm, No JVD, No Murmur Peripheral Pulses: 2+: Radial (L), Radial (R), Dorsalis Pedis (L), Dorsalis Pedis (R) GI/Abdominal: Normal Bowel Sounds, Soft, Non-Tender, No Distention, No Mass Back Exam: Normal Inspection, CVA Tenderness (L) Extremities: Normal Inspection, Normal Range of Motion, Non-Tender, No Pedal Edema, Normal Capillary Refill Neurological: Alert, Oriented, CN II-XII Intact, Normal Cognition, No Motor/ Sensory Deficits Skin Exam: Warm, Dry, Intact, Normal Color, No Rash Lymphatic: No Adenopathy EKG INTERPRETATION EKG Date: 08/25/18 Time: 01:45 Rhythm: NSR Rate (Beats/Min): 74 [place]: Normal P-Wave: Present QRS: Normal ST-T: Normal QT: Normal Comparison: No Change (Patient no longer has peaked T waves. Otherwise no real significant change from previous EKG. There is poor R-wave progression that could represent a previous old anteroseptal TN.) Course - Orders/Labs/Meds Orders: Active Orders 24 hr Category Date Time Status EKG Documentation Completion [RC] ASDIRECTED Care 08/25/18 01:45 Active CULTURE URINE [RM] Stat Lab 08/25/18 00:39 Received Acetaminophen/oxyCODONE [Percocet 325-5 MG] Med 08/25/18 02:39 Once 2 tab PO ONETIME ONE Doxycycline [Vibra-Tabs] Med 08/25/18 02:40 Once 100 mg PO ONETIME ONE EKG 12 Lead [EK] Routine Ther 08/25/18 01:44 Ordered Medication Orders Doxycycline Hyclate (Vibra-Tabs) 100 mg PO ONETIME ONE Stop: 08/25/18 02:41 Oxycodone/Acetaminophen (Percocet 325-5 Mg) 2 tab PO ONETIME ONE Stop: 08/25/18 02:40 Labs: Laboratory Tests 08/25/18 08/25/18 08/25/18 Range/Units 00:39 01:20 01:20 WBC 9.2 (4.5-12.0) X10-3/uL RBC 3.91 L (4.30-5.75) x10(6)uL Hgb 11.3 L (13.5-17.8) g/dL Hct 33.1 (30.0-51.3) % MCV 84.7 (80-96) fL MCH 28.9 (27.7-33.6) pg MCHC 34.1 (32.2-35.4) g/dL RDW 14.1 (11.5-15.5) % Plt Count 273 (125-369) X10(3)uL MPV 7.1 L (7.4-10.4) fL Neut % (Auto) 51.0 (46-82) % Lymph % (Auto) 34.9 (13-37) % [place] % (Auto) 8.1 (4-12) % Eos % (Auto) 5 (1.0-5.0) % Baso % (Auto) 1 (0-2) % Neut # (Auto) 4.7 (1.6-8.3) # Lymph # (Auto) 3.2 (0.6-5.0) # [place] # (Auto) 0.7 (0.0-1.3) # Eos # (Auto) 0.5 (0.0-0.8) # Baso # (Auto) 0.1 (0.0-0.2) # Sodium 142 (135-145) mmol/L Potassium 5.3 D (3.5-5.3) mmol/L Chloride 109 (100-110) mmol/L Carbon Dioxide 22 (21-32) mmol/L BUN 43 H (7-18) mg/dL Creatinine 3.0 H* (0.70-1.30) mg/dL Est Cr Clr Drug Dosing TNP Estimated GFR (MDRD) 22 L (>60) BUN/Creatinine Ratio 14.3 (9-20) Glucose 119 H (80-116) mg/dL Calcium 9.3 (8.6-10.2) mg/dL Magnesium (1.8-2.5) mg/dL Troponin I (<0.017-0.056) ng/mL Urine Color Yellow (YELLOW) Urine Appearance Clear (CLEAR) Urine pH 6.0 (5.0-6.5) Ur Specific [place] 1.020 (1.010-1.025) Urine Protein 30 H (NEGATIVE) mg/dL Urine Glucose (UA) Normal (NORMAL) mg/dL Urine Ketones Negative (NEGATIVE) mg/dL Urine Occult Blood Negative (NEGATIVE) Urine Nitrite Positive H (NEGATIVE) Urine Bilirubin Negative (NEGATIVE) Urine Urobilinogen Normal (NEGATIVE) mg/dL Ur Leukocyte Esterase Small H (NEGATIVE) Urine RBC 0-5 (0-5) Urine WBC 10-20 H (0-5) Ur Squamous Epith Cells Rare (NS,R,O) Urine Bacteria Few H (NS) Coarse Granular Casts Few H (NS) 08/25/18 08/25/18 Range/Units 01:20 01:20 WBC (4.5-12.0) X10-3/uL RBC (4.30-5.75) x10(6)uL Hgb (13.5-17.8) g/dL Hct (30.0-51.3) % MCV (80-96) fL MCH (27.7-33.6) pg MCHC (32.2-35.4) g/dL RDW (11.5-15.5) % Plt Count (125-369) X10(3)uL MPV (7.4-10.4) fL Neut % (Auto) (46-82) % Lymph % (Auto) (13-37) % [place] % (Auto) (4-12) % Eos % (Auto) (1.0-5.0) % Baso % (Auto) (0-2) % Neut # (Auto) (1.6-8.3) # Lymph # (Auto) (0.6-5.0) # [place] # (Auto) (0.0-1.3) # Eos # (Auto) (0.0-0.8) # Baso # (Auto) (0.0-0.2) # Sodium (135-145) mmol/L Potassium (3.5-5.3) mmol/L Chloride (100-110) mmol/L Carbon Dioxide (21-32) mmol/L BUN (7-18) mg/dL Creatinine (0.70-1.30) mg/dL Est Cr Clr Drug Dosing Estimated GFR (MDRD) (>60) BUN/Creatinine Ratio (9-20) Glucose (80-116) mg/dL Calcium (8.6-10.2) mg/dL Magnesium 1.9 (1.8-2.5) mg/dL Troponin I < 0.017 L (<0.017-0.056) ng/mL Urine Color (YELLOW) Urine Appearance (CLEAR) Urine pH (5.0-6.5) Ur Specific [place] (1.010-1.025) Urine Protein (NEGATIVE) mg/dL Urine Glucose (UA) (NORMAL) mg/dL Urine Ketones (NEGATIVE) mg/dL Urine Occult Blood (NEGATIVE) Urine Nitrite (NEGATIVE) Urine Bilirubin (NEGATIVE) Urine Urobilinogen (NEGATIVE) mg/dL Ur Leukocyte Esterase (NEGATIVE) Urine RBC (0-5) Urine WBC (0-5) Ur Squamous Epith Cells (NS,R,O) Urine Bacteria (NS) Coarse Granular Casts (NS) Meds: Medications Generic Name Dose Route Start Last Admin Trade Name Freq PRN Reason Stop Dose Admin Doxycycline Hyclate 100 mg 08/25/18 02:40 Vibra-Tabs PO 08/25/18 02:41 ONETIME ONE Oxycodone/Acetaminophen 2 tab 08/25/18 02:39 Percocet 325-5 Mg PO 08/25/18 02:40 ONETIME ONE - Re-Assessments/Exams Free Text/Narrative Re-Assessment/Exam: 08/25/18 02:40: Patient has remained vitally stable while here in the emergency department. He is afebrile and nontoxic appearing. His creatinine is 3.0 which is about where it has been or maybe a little worse than was described after discharge from [facility] on 08/17/2018. His urinalysis still shows evidence of infection. His EKG is unchanged and shows nothing acute. A troponin was negative. He has chronic left flank pain and I have discussed with him at length that the emergency department would not be able to provide him with any chronic pain management or any further narcotic-type prescriptions. A review the patient's previous urine cultures show staph epidermidis that was sensitive to doxycycline. I will give the patient a single dose of a medications now ( Percocet 5/325, 2 tablets). I will also give the patient a single dose of doxycycline now and place him on 10 day course of doxycycline. I will also refer him to Ashley nurse practitioner to arrange for primary provider and discuss any pain management issues. Departure - Departure Time of Disposition: 02:50 Disposition: Home, Self-Care 01 Condition: Good (Stable) Clinical Impression: Chronic left flank pain Chronic renal insufficiency Qualifiers: Chronic kidney disease stage: stage 4 (severe) Qualified Code(s): N18.4 - Chronic kidney disease, stage 4 (severe) UTI (urinary tract infection) Qualifiers: Urinary tract infection type: site unspecified Hematuria presence: without hematuria Qualified Code(s): N39.0 - Urinary tract infection, site not specified - Discharge Information Prescriptions: Doxycycline [Vibramycin] 100 mg PO BID 10 Days #20 cap Instructions: Flank Pain, Adult, [id number], Antibiotic Medicine, Adult, Easy -to-Read, Chronic Pain, Adult Referrals: PCP,None [Primary Care Provider] - Ashley Zuniga NP [Nurse Practitioner] - Forms: ED Department Discharge Additional Instructions: Your creatinine was 3.0. Your urine test showed evidence of continuing infection. Your blood tests otherwise are reassuringly normal, including a normal potassium. Your EKG was normal. Medication as prescribed for your urinary tract infection (doxycycline 100 mg). Increase your fluid intake. As we discussed, we will not be able to manage your chronic pain through the emergency department and we would not be able to give you any prescriptions for narcotic type pain medications. You will need to establish with a primary doctor or go through the pain clinic as you have been scheduled on 09/03/2018. I have referred you to Ashley Zuniga NP. They should call and arrange a time for you to see her. Back to the emergency department for unrelenting vomiting, high fever or any other concerning sign or symptom. - My Orders Last 24 Hours: My Active Orders 08/25/18 00:39 CULTURE URINE [RM] Stat 08/25/18 01:44 EKG 12 Lead [EK] Routine 08/25/18 01:45 EKG Documentation Completion [RC] ASDIRECTED 08/25/18 02:39 Acetaminophen/oxyCODONE [Percocet 325-5 MG] 2 tab PO ONETIME ONE 08/25/18 02:40 Doxycycline [Vibra-Tabs] 100 mg PO ONETIME ONE - Assessment/Plan Last 24 Hours: My Active Orders 08/25/18 00:39 CULTURE URINE [RM] Stat 08/25/18 01:44 EKG 12 Lead [EK] Routine 08/25/18 01:45 EKG Documentation Completion [RC] ASDIRECTED 08/25/18 02:39 Acetaminophen/oxyCODONE [Percocet 325-5 MG] 2 tab PO ONETIME ONE 08/25/18 02:40 Doxycycline [Vibra-Tabs] 100 mg PO ONETIME ONE
[2018-08-25] MEDS ORDERED: Acetaminophen/oxyCODONE 325-5 MG Tab PO ONE (02:39)
[2018-08-25] MEDS ORDERED: Doxycycline 100 MG Tab PO ONE (02:40)
== END 2018-08-25 03:06 | disposition home or self-care (01) ==
LOC: FB.ED 23:16
DX: N39.0 Urinary tract infection, site not specified (principal); I12.9 Hypertensive chronic kidney disease with stage 1 through stage 4 chronic kidney disease, or unspecified chronic kidney disease; N18.4 Chronic kidney disease, stage 4 (severe); F17.200 Nicotine dependence, unspecified, uncomplicated; I25.10 Atherosclerotic heart disease of native coronary artery without angina pectoris; I25.2 Old myocardial infarction; Z88.1 Allergy status to other antibiotic agents; Z91.041 Radiographic dye allergy status; Z88.2 Allergy status to sulfonamides; Z79.82 Long term (current) use of aspirin; E11.22 Type 2 diabetes mellitus with diabetic chronic kidney disease
CPT/HCPCS: 36415; 80048; 81001; 83735; 84484; 85025; 87086; 87088; 87186; 93005; 99284; A9270

== ENCOUNTER 2018-09-05 23:19 | Emergency (ER) | payer MEDICARE, MEDICAID ==
--- NOTE | 2018-09-05 23:59 | EDM.PDOC ---
ED HPI GENERAL MEDICAL PROBLEM - General Chief Complaint: Flank Pain Stated Complaint: KIDNEYS Time Seen by Provider: 09/05/18 23:48 Source of Information: Reports: Patient History Limitations: Reports: No Limitations - History of Present Illness INITIAL COMMENTS - FREE TEXT/NARRATIVE: 53-year-old male with history of multiple kidney stones in the past and chronic left flank pain. He has been seen multiple times in this emergency department in relation to the light pain. He has had at least 3 cultures which have shown staphylococcus epidermidis and with the last visit, he was given prescription for doxycycline and he tells me that he has been taking this medication. He states for the past 2 nights he has had burning pains in his penis with urination. He continues to have the left flank pain and reports that he took his last pain medication (oxycodone) last night secondary to his flank pain. He has had no fevers. He's had no chills. He has had some nausea but no vomiting. He's been able to take liquids well. He rates the pain in his flank as a 7/10 it is a sharp, aching and throbbing pain. He was referred to a pain clinic and he went to the pain clinic on 09/03/2018. He reports that they were going to formulate a plan for him. He was given no pain medications. He has noticed that his urine is been somewhat are intact. There are no other associated signs or symptoms. There are no other modifying factors. Onset: Other (Ongoing pain in his left flank. Burning with urination for the past 2 days.) Duration: Getting Worse (But he is out of his pain medications.) Location: Reports: Abdomen (Left flank), Other (Penis) Quality: Reports: Burning, Sharp, Throbbing Severity: Moderate Improves with: Reports: None Worsens with: Reports: Medication (It did improve with this pain medication) Context: Reports: Other (As above) Associated Symptoms: Reports: Loss of Appetite, Nausea/Vomiting (Nausea) Treatments [employer]LE [employer]: Reports: Other Medication(s) (Doxycycline, he is finishing his 10 days of treatment over the next day.) left flank Pain Score (Numeric/FACES): 7 - Related Data Allergies Allergy/AdvReac Type Severity Reaction Status Date / Time Cephalosporins Allergy Cannot Verified 08/25/18 03:28 Remember ciprofloxacin [From Cipro] Allergy Cannot Verified 08/25/18 03:28 Remember Iodinated Contrast- Oral and Allergy Cannot Verified 08/25/18 03:28 IV Dye Remember morphine Allergy Cannot Verified 08/25/18 03:28 Remember Sulfa (Sulfonamide Allergy Cannot Verified 08/25/18 03:28 Antibiotics) Remember vancomycin Allergy Cannot Verified 08/25/18 03:28 Remember Home Meds: Home Meds Aspirin [Halfprin] 81 mg PO DAILY 07/29/18 [History] Clopidogrel [Plavix] 75 mg PO DAILY 07/29/18 [History] Fenofibrate Nanocrystallized [Fenofibrate] 160 mg PO DAILY 07/29/18 [History] Metoprolol Tartrate [Lopressor] 50 mg PO DAILY 07/29/18 [History] Rifampin [Rifadin] 300 mg PO TID #30 capsule 08/19/18 [Rx] Doxycycline [Vibramycin] 100 mg PO BID 10 Days #20 cap 08/25/18 [Rx] Past Medical History Cardiovascular History: Reports: CAD, High Cholesterol, Hypertension, [place], Stents Other Cardiovascular History: has 6 stents Genitourinary History: Reports: Chronic Renal Insuffiency, Renal Calculus, Other (See Below) Other Genitourinary History: Status post right nephrectomy Psychiatric History: Reports: Anxiety, Depression, Panic Attack Endocrine/Metabolic History: Reports: Diabetes, Type II Other Endocrine/Metabolic History: states DM resolved after weightloss, is currently not on meds. Hematologic History: Reports: Blood Transfusion(s) - Infectious Disease History Infectious Disease History: Reports: Chicken Pox, Measles, Mumps, Shingles - Past Surgical History HEENT Surgical History: Reports: Other (See Below) Other HEENT Surgeries/Procedures: Left ear surgery. Cardiovascular Surgical History: Reports: Carotid Stents Male Surgical History: Reports: Ureteral Stent (With multiple cystoscopies in the past), Other (See Below) Other Male Surgeries/Procedures: right kidney removed in 2007 Social & Family History - Family History Family Medical History: Noncontributory - Tobacco Use Smoking Status *Q: Former Smoker Used Tobacco, but Quit: Yes Month/Year Tobacco Last Used: 2 days ago - Caffeine Use Caffeine Use: Reports: Coffee - Alcohol Use Alcohol Use History: No ED ROS GENERAL - Review of Systems Review Of Systems: See Below Constitutional: Reports: No Symptoms HEENT: Reports: No Symptoms Respiratory: Reports: No Symptoms Cardiovascular: Reports: No Symptoms GI/Abdominal: Reports: Nausea : Reports: Flank Pain (Left), Other (Burning with urination. He is able to urinate.) Musculoskeletal: Reports: No Symptoms Skin: Reports: No Symptoms Neurological: Reports: No Symptoms Hematologic/Lymphatic: Reports: Easy Bruising (He is supposed to be taking Plavix) ED EXAM, RENAL/ - Physical Exam Exam: See Below Exam Limited By: No Limitations General Appearance: Alert, WD/WN, No Apparent Distress Eye Exam: Bilateral Eye: EOMI, Normal Inspection, PERRL Ears: Normal External Exam Nose: Normal Inspection, Normal Mucosa Throat/Mouth: Normal Inspection, Normal Oropharynx, Normal Voice, No Airway Compromise Head: Atraumatic, Normocephalic Neck: Normal Inspection, Supple, Non-Tender, Full Range of Motion Respiratory/Chest: No Respiratory Distress, Lungs Clear, Normal Breath Sounds, No Accessory Muscle Use, Chest Non-Tender Cardiovascular: Normal Peripheral Pulses, Regular Rate, Rhythm, No JVD GI/Abdominal: Normal Bowel Sounds, Soft, No Mass, Tender (Mildly tender on left flank area.). No: Rigid, Rebound Back Exam: Normal Inspection Extremities: Normal Inspection, Normal Range of Motion, Non-Tender, No Pedal Edema, Normal Capillary Refill Neurological: Alert, Oriented, CN II-XII Intact, Normal Cognition, No Motor/ Sensory Deficits Skin Exam: Warm, Dry, Intact, Normal Color, No Rash Course - Vital Signs Last Recorded V/S: Last Vital Signs Temp 36.5 C 09/05/18 23:19 Pulse 83 09/05/18 23:19 Resp 18 09/05/18 23:19 BP 160/104 H 09/05/18 23:19 Pulse Ox 100 09/05/18 23:19 - Orders/Labs/Meds Orders: Active Orders 24 hr Category Date Time Status CULTURE URINE [RM] Stat Lab 09/06/18 00:55 Ordered Labs: Laboratory Tests 09/06/18 09/06/18 09/06/18 Range/Units 00:03 00:09 00:09 WBC 9.7 (4.5-12.0) X10-3/uL RBC 3.94 L (4.30-5.75) x10(6)uL Hgb 11.7 L (13.5-17.8) g/dL Hct 33.9 (30.0-51.3) % MCV 85.9 (80-96) fL MCH 29.7 (27.7-33.6) pg MCHC 34.5 (32.2-35.4) g/dL RDW 13.8 (11.5-15.5) % Plt Count 249 (125-369) X10(3)uL MPV 8.0 (7.4-10.4) fL Neut % (Auto) 48.5 (46-82) % Lymph % (Auto) 36.9 (13-37) % [place] % (Auto) 8.9 (4-12) % Eos % (Auto) 5 (1.0-5.0) % Baso % (Auto) 1 (0-2) % Neut # (Auto) 4.6 (1.6-8.3) # Lymph # (Auto) 3.6 (0.6-5.0) # [place] # (Auto) 0.9 (0.0-1.3) # Eos # (Auto) 0.5 (0.0-0.8) # Baso # (Auto) 0.1 (0.0-0.2) # Sodium 140 (135-145) mmol/L Potassium 4.6 (3.5-5.3) mmol/L Chloride 107 (100-110) mmol/L Carbon Dioxide 22 (21-32) mmol/L BUN 40 H (7-18) mg/dL Creatinine 2.7 H* (0.70-1.30) mg/dL Est Cr Clr Drug Dosing 28.88 mL/min Estimated GFR (MDRD) 25 L (>60) BUN/Creatinine Ratio 14.8 (9-20) Glucose 132 H (80-116) mg/dL Calcium 9.0 (8.6-10.2) mg/dL Urine Color Yellow (YELLOW) Urine Appearance Clear (CLEAR) Urine pH 5.0 (5.0-6.5) Ur Specific [place] 1.015 (1.010-1.025) Urine Protein 500 H (NEGATIVE) mg/dL Urine Glucose (UA) Normal (NORMAL) mg/dL Urine Ketones Negative (NEGATIVE) mg/dL Urine Occult Blood Negative (NEGATIVE) Urine Nitrite Negative (NEGATIVE) Urine Bilirubin Negative (NEGATIVE) Urine Urobilinogen Normal (NEGATIVE) mg/dL Ur Leukocyte Esterase Negative (NEGATIVE) Urine RBC 0-5 (0-5) Urine WBC 0-5 (0-5) Ur Squamous Epith Cells Occasional (NS,R,O) Urine Bacteria Rare H (NS) - Re-Assessments/Exams Free Text/Narrative Re-Assessment/Exam: 09/06/18 01:08: The patient's blood tests are reassuring. His creatinine was actually somewhat improved from previous. It was 2.7 today versus 3.0 in the past. The bacteria was present on the urine culture from 08/25/2018 was sensitive to doxycycline and it was the same bacteria that has been present on all of his urine cultures in the past 2 months. I have urged him to finish the doxycycline. I also sent his urine for urine culture today. He should follow-up with his primary provider this week. And, I reiterated with him that he will need to go through his primary provider or the pain clinic for any pain management issues and that we would not be able to provide him with any pain medications for his chronic pain. Departure - Departure Time of Disposition: 01:15 Disposition: Home, Self-Care 01 Condition: Good (Stable) Clinical Impression: Left flank pain, chronic, Dysuria Chronic renal insufficiency Qualifiers: Chronic kidney disease stage: stage 4 (severe) Qualified Code(s): N18.4 - Chronic kidney disease, stage 4 (severe) - Discharge Information Referrals: Maribell Cochran NP [Primary Care Provider] - Forms: ED Department Discharge Additional Instructions: Your blood tests were reassuring. Your creatinine was 2.7 which is somewhat improved from previous. You urine test showed no clear-cut evidence of infection at this time. The bacteria present in your urine on all 3 cultures that we have had including the one on 08/25/2018 was sensitive to the antibiotic that you were placed on (doxycycline). I recommend that you continue to take the doxycycline until it has all been taken. I am unsure why you are having the burning with urination today. I did send her urine for another culture today and you should follow-up with your primary provider on Friday or Friday of this coming week. You will need to go through your provider or the pain clinic for any pain medications or pain management. Back to the emergency department for high fever, unrelenting vomiting or any other concerning sign or symptom. - My Orders Last 24 Hours: My Active Orders 09/06/18 00:55 CULTURE URINE [RM] Stat - Assessment/Plan Last 24 Hours: My Active Orders 09/06/18 00:55 CULTURE URINE [] Stat
== END 2018-09-06 01:19 | disposition home or self-care (01) ==
LOC: FB.ED 23:19
DX: I12.9 Hypertensive chronic kidney disease with stage 1 through stage 4 chronic kidney disease, or unspecified chronic kidney disease (principal); N18.4 Chronic kidney disease, stage 4 (severe); I25.10 Atherosclerotic heart disease of native coronary artery without angina pectoris; E78.00 Pure hypercholesterolemia, unspecified; I25.2 Old myocardial infarction; F41.9 Anxiety disorder, unspecified; F32.9 Major depressive disorder, single episode, unspecified; E11.22 Type 2 diabetes mellitus with diabetic chronic kidney disease; Z87.891 Personal history of nicotine dependence; Z95.5 Presence of coronary angioplasty implant and graft; Z79.899 Other long term (current) drug therapy; Z79.82 Long term (current) use of aspirin; Z79.02 Long term (current) use of antithrombotics/antiplatelets; Z88.8 Allergy status to other drugs, medicaments and biological substances; Z88.2 Allergy status to sulfonamides
CPT/HCPCS: 36415; 80048; 81001; 85025; 87086; 99283; 99284